=== PATIENT | male | born 1985 | race Caucasian/White ===

== ENCOUNTER 2022-07-05 10:43 | Emergency (ER) | payer OTHER, SELFPAY ==
[2022-07-05 11:00] VITALS: BP 132/91; PULSE 88; RESP 16; TEMP 37.1; O2SAT 98
--- NOTE | 2022-07-05 11:17 | CRLHL7_ITS ---
For Patients: As a result of the Cures Act, medical imaging exams and procedure reports are released immediately into your electronic medical record. You may view this report before your referring provider. If you have questions, please contact your health care provider. Indication: Injury Technique: A total of three views of the right knee were acquired. Comparison: None Findings: Bones: Alignment is normal. No fractures or bone lesions. Joint spaces: Unremarkable. Soft tissues: Large joint effusion. Impression: No directly visible acute fracture, dislocation or destructive process. Large joint effusion which can indicate internal derangement or radiographic occult fracture. Dictated by Manoj Stanley MD @ 07/05/2022 12:03:51 PM (Electronically Signed)
--- NOTE | 2022-07-05 12:10 | ED_ITS ---
HPI - Extremity Problem General Date Seen: 07/05/22 Chief complaint: Lower Extremity Swelling Stated complaint: Fell, injured R knee Time Seen by Provider: 07/05/22 11:16 Source: patient and family Mode of arrival: ambulatory Limitations: no limitations History of Present Illness HPI Narrative: Patient is a 28-year-old gentleman who was up this morning, went outside and slipped on the ice, injuring his right knee, since then he has had trouble bearing weight on his knee, and is noted to be slightly swollen. He has no previous history of knee injuries. Denies any numbness tingling weak and no other associated injury associated with this, he did come to the emergency room for further assessment with his . He did take ibuprofen at approximately 5:30 a.m. this morning. Does not know if this did anything, health is otherwise good, which from [employer]. Related Data Home Medications Medication Instructions Recorded Confirmed No Known Home Medications 07/05/22 07/05/22 Allergies Allergy/AdvReac Type Severity Reaction Status Date / Time No Known Drug Allergies Allergy Verified 07/05/22 11:02 Review of Systems Status of ROS: Reports: 10 or more systems reviewed and unremarkable except as noted in History and below PFSH PFSH Social History Smoking Status: Never smoker Do you use any of these nicotine containing products: None How often do you have a drink containing alcohol: 2-3 times a week How many standard drinks containing alcohol do you have on a typical day: 3 or 4 How often do you have six or more drinks on one occasion: Never AUDIT-C Alcohol total score: 4 Non-prescribed substance use: denies use Exam Narrative: Exam Narrative: On examination well muscled very nice gentleman seen in room 1. His right knee has extension to approximately 5? in flexion to approximately 80?. There is some mild effusion noted his right knee, PCL, MCL and LCL seem intact, his ACL seems lax, on his right knee. Popliteal area is normal, is popliteal pulse and DP and posterior tibial are normal, Gabriela's test does not elicit any significant pain. On ultrasound there is some mild fluid in his right knee, but not a huge amount. X-ray is done which shows no fracture I can see, mild effusion noted. 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 I recommend follow-up with orthopedics next week and we did endeavor to make an appointment there. Vital Signs Vital signs: Initial Vital Signs Temperature 98.7 F 07/05/22 11:00 Temperature Source Temporal Artery Scan 07/05/22 11:00 Pulse Rate 88 07/05/22 11:00 Pulse Rhythm 07/05/22 11:00 Respiratory Rate 16 07/05/22 11:00 Blood Pressure 132/91 H 07/05/22 11:00 Blood Pressure Mean 104 07/05/22 11:00 Blood Pressure Position Sitting 07/05/22 11:00 Pulse Oximetry 98 07/05/22 11:00 Oxygen Delivery Method 07/05/22 11:00 Vital Signs Temperature 98.7 F 07/05/22 11:00 Pulse Rate 88 07/05/22 11:00 Respiratory Rate 16 07/05/22 11:00 Blood Pressure 132/91 H 07/05/22 11:00 Pulse Oximetry 98 07/05/22 11:00 Oxygen Delivery Method 07/05/22 11:00 Temperature 98.7 F 07/05/22 11:00 Pulse Rate 88 07/05/22 11:00 Respiratory Rate 16 07/05/22 11:00 Blood Pressure 132/91 H 07/05/22 11:00 Pulse Oximetry 98 07/05/22 11:00 Oxygen Delivery Method 07/05/22 11:00 MDM - Extremity (Nontraumatic) MDM Narrative Medical decision making narrative: During this evaluation I considered multiple diagnosis including ligamentous rupture, meniscal tear, dislocation of the knee or kneecap, fracture, sprain, or other issues. Discharge Plan Discharge Clinical Impression: Acute knee pain Patient Disposition: Home w/ Parent or Adult Condition: Stable Instructions: Crutch Instructions (ED), Knee Pain (ED) Additional Instructions: Home rest if your unable to bear weight then I think crutches are in order along with a knee immobilizer, let us have the nurse assess that pre discharge. Otherwise you can bear weight as tolerated on your right knee, follow-up with orthopedics next week, your appointment will be made, ibuprofen 800 mg 3 times a day, Prescriptions: No Action No Known Home Medications Follow Up/Referrals: Kodak Javed MD [Staff Physician] - Mary Gamboa PA-C [Primary Care Provider] - Ricardo Rene MD [Staff Physician] - Stand Alone Forms: [facility] Info Instructions
== END 2022-07-05 12:10 | disposition home or self-care (01) ==
PROVIDERS: Emergency Provider Family Medicine; PCP Physician Assistant Medical
DX: M25.561 Pain in right knee (principal); W01.0XXA Fall on same level from slipping, tripping and stumbling without subsequent striking against object, initial encounter
CPT/HCPCS: 73562; 99283

== ENCOUNTER 2022-07-17 08:56 | Outpatient (CLI) | payer OTHER, SELFPAY ==
--- NOTE | 2022-07-17 09:15 | MR_ITS ---
[address] [address] Phone:?[phone] Fax:?[phone] Referring Physician Information: Debra Michaels [facility] [id number] Phone:?[phone] Fax:?[phone] Patient:Luca Dunaway D.O.B:?1985 Sex:?Male Phone:?[phone] [facility] MRN:?[id number] Exam Date:?07/17/2022 ? EXAM: MRI of the RIGHT KNEE, without contrast CLINICAL HISTORY: Right knee injury. Suspect internal derangement. COMPARISONS: MRI 12/02/2012. TECHNICAL: MR sequences of the right knee: sagittals: PD, PDFS coronals: PD, STIR axials: PD, T2 FS CONTRAST: None SEDATION: None FINDINGS: Bones: There is mildly impacted fracture/bone marrow contusion of the peripheral portion of the lateral femoral condyle best seen on axial series 4 images 17 through 20. There is small bone marrow contusion of the medial aspect of the patella best seen on axial series 4 image 19. Patellofemoral joint: Cartilage: Intact. Retinacula: The medial and lateral retinacula are intact. Fat pads: The infrapatellar, quadriceps, and prefemoral fat pads are unremarkable. The Insall Salvati index index measures 0.90. The lateral trochlear inclination angle measures 20 degrees. The tibial tubercle to trochlear groove distance 0.9 cm. Knee joint: Effusion: Large right knee joint effusion. Popliteal cyst: None. Intra-articular bodies: Intra-articular bodies anterior to the anterior horn of the lateral meniscus measuring 3 x 9 x 7 mm in aggregate best seen on sagittal series 6 image 10 and coronal series 8 image 14. Posteromedial corner: The semimembranosus and pes anserine tendons are intact. Medial compartment: Medial meniscus: Intact. Cartilage: 1.0 cm in AP dimension by 0.5 cm in transverse dimension area of full-thickness chondromalacia over the mid weightbearing portion of the medial femoral condyle with slight subjacent subchondral cystic change best seen on coronal series 8 image 20 and sagittal series 5 image 22. Lateral compartment: Lateral meniscus: Intact. Cartilage: 1.5 cm in AP dimension by 0.5 cm in transverse dimension area of full-thickness chondral loss over the anterior nonweightbearing portion of the lateral femoral condyle best seen on sagittal series 6 image 11 and coronal series 8 image 13. Ligaments: Anterior cruciate ligament: Intact. Posterior cruciate ligament: Attenuation and irregularity of the posterior cruciate ligament are findings consistent with sequelae of chronic tear injury. Medial collateral ligament: Intact. Posterior oblique ligament: Intact. Fibular collateral ligament: Intact. Posterolateral corner: The distal biceps femoris tendon, iliotibial band, popliteus tendon, popliteus muscle, popliteofibular ligament, and arcuate ligament are intact. Extensor mechanism: Patellar tendon: Intact. Quadriceps tendon: Intact. IMPRESSION: 1. Sequelae of transient lateral patellar dislocation injury include mildly impacted fracture/bone marrow contusion of the peripheral portion of the lateral femoral condyle and small bone marrow contusion of the medial aspect of the patella. 2. 1.5 x 0.5 cm area of full-thickness chondral loss over the anterior nonweightbearing portion of the lateral femoral condyle. 3. 1.0 x 0.5 cm area of full-thickness chondromalacia over the mid weightbearing portion of the medial femoral condyle with slight subjacent subchondral cystic change. 4. Intra-articular bodies anterior to the anterior horn of the lateral meniscus measure 3 x 9 x 7 mm in aggregate. 5. Attenuation and irregularity of the posterior cruciate ligament are findings consistent with sequelae of chronic complete tear, which was seen on previous MRI 12/02/2012. 6. Large right knee joint effusion. 7. No retinacular injury or meniscal tear of the right knee. The Insall Salvati index, lateral trochlear inclination angle, and tibial tubercle to trochlear groove distance measurements are within normal limits. RCB Electronically signed on 07/17/2022 11:41:00 AM by Rafael Champion M.D.
== END 2022-07-17 08:57 | disposition home or self-care (01) ==
PROVIDERS: PCP Physician Assistant Medical; Visit Provider Physician Assistant Surgical
DX: M25.561 Pain in right knee (principal); M23.91 Unspecified internal derangement of right knee; S83.014A Lateral dislocation of right patella, initial encounter; M94.261 Chondromalacia, right knee; M25.461 Effusion, right knee
CPT/HCPCS: 73721

== ENCOUNTER 2022-09-05 06:14 | Day surgery (SDC) | payer OTHER, SELFPAY ==
[2022-09-05] VITALS (13 sets, daily range): BP systolic 106–134; BP diastolic 75–95; PULSE 59–92; RESP 16; TEMP 36.1–36.6; O2SAT 90–96; BMI 30.3
[2022-09-05] MEDS: SODIUM CHLORIDE 0.9 % (FLUSH) 10 ML SYRINGE IVF (06:45)
[2022-09-05] MEDS: LACTATED RINGERS 1000 ML 1,000 ML 100 ML IV (06:45)
--- NOTE | 2022-09-05 06:48 | SUR.PREOP ---
HOME COVID TEST NEGATIVE.
[2022-09-05] MEDS: CEFAZOLIN 2 GM in 0.9 % SODIUM CHLORIDE Mini-bag 100 ML IVPB (07:45)
[2022-09-05] MEDS: ROPIVACAINE 0.5% 30 ML 150 MG INJECTION (08:04)
--- NOTE | 2022-09-05 08:26 | W.ANESCHARGE ---
Anesthesia Charges Start Date/Time Anesthesia Start Date: 09/05/22 Anesthesia Start Time: 07:38 Stop Date/Time Anesthesia Stop Date: 09/05/22 Anesthesia Stop Time: 08:25
--- NOTE | 2022-09-05 08:31 | W.ANESCHARGE ---
Anesthesia Charges Start Date/Time Anesthesia Start Date: 09/05/22 Anesthesia Start Time: 07:38 Stop Date/Time Anesthesia Stop Date: 09/05/22 Anesthesia Stop Time: 08:25
--- NOTE | 2022-09-05 09:33 | P.ORPRC_ITS ---
Procedure Note Date of procedure: 09/05/22 Procedure: PREOPERATIVE DIAGNOSIS: 1. Right knee loose body POSTOPERATIVE DIAGNOSIS: 1. Right knee loose body 2. 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 Right knee arthroscopic loose body removal 2. Right knee arthroscopic chondroplasty medial femoral condyle (anteriorly) SURGEON: Kodak Javed M.D. ACCOUNTING MACHINE OPERATOR: Rubin Bruce PA-C. Of note, an assistant professor of drama was critical for this case to aid in patient positioning, knee manipulation, instrument exchange, and closure. ANESTHESIA: Spinal EBL: 2ml TOURNIQUET: 20 minutes at 300 torr COMPLICATIONS: None evident INDICATIONS: The patient is a pleasant 37-year-old male who has experienced right knee pain. History is notable for a chronic PCL tear. However, more recent injury prompted further investigation with exam and MRI which were cons istent with a loose body. Additionally, attempted nonoperative management has been tried, and failed. Thus, surgery was recommended. FINDINGS: Thin, 9 mm in length chondral loose body resting in the anterolateral compartment of the knee. This was removed with the torpedo shaver. Beyond that, grade 3 chondromalacia with loose chondral flaps seen in the anterior portion of the medial femoral condyle. The patella showed grade 2-3 chondromalacia median ridge. Medial compartment showed intact medial meniscus and grade 2-3 chondromalacia weight-bearing portion medial femoral condyle broadly. Lateral compartment showed intact lateral meniscus and intact articular cartilage. We tracked the articular cartilage up along the distal and anterior portion of the femur and did not appreciate any other full-thickness chondral defects. ACL was intact robust. PCL was deficient in absent. DESCRIPTION OF PROCEDURE: After a thorough discussion of risks, benefits, and alternatives, the patient was brought to the operating room and placed upon the operating table. Induction of anesthesia was undertaken as previously noted. 2g iv Ancef was administered within 1 hr of incision preoperatively. Appropriate time-out was performed identifying proper patient, site, and procedure. The right lower extremity was prepped and draped in the appropriate sterile fashion using ChloraPrep. The limb was exsanguinated and tourniquet inflated. Anterolateral and anteromedial portals were established with an 11 blade, and a diagnostic arthroscopy was performed. This identified the findings as noted above. Following the diagnostic arthroscopy, a loose body removal was performed with the torpedo shaver. This was also utilized for the chondroplasty on the anterior portion medial femoral condyle of the loose chondral flaps. At this stage, the shaver was reinserted into the suprapatellar pouch and all remaining meniscal debris was evacuated. Instruments were removed, excess fluid was drained, and closure performed with 4-0 Monocryl with Steri-Strips. Dressings were applied, the tourniquet deflated, and the patient was awoken from anesthesia and transferred to the PACU in stable condition. PLAN: 1. Weightbear as tolerated operative extremity. Crutch / walker ambulation assistance PRN. 2. Ice, acetominophen and/or ibuprofen, and Percocet for pain as needed. 3. Knee range of motion and quad sets/straight leg raise regularly 4. Follow up with PA visit in 1-2 weeks for a wound check and possibly to initiate physical therapy.
--- NOTE | 2022-09-05 10:00 | SUR.PHASEII ---
Pt tolerated water. Patient did have one episode of emesis. Pt was offered, but did not care for medicine after episode. Cold washcloth, Queasy patch applied. After monitoring, pt verbalized readiness to be discharged. Pt verbalized understanding of discharge education.
== END 2022-09-05 10:01 | disposition home or self-care (01) ==
PROVIDERS: PCP Physician Assistant Medical; Visit Provider Orthopaedic Surgery Sports Medicine
PROC: (CPT 29870; principal; 2022-09-05 07:30)
DX: M23.41 Loose body in knee, right knee (principal); M94.261 Chondromalacia, right knee
CPT/HCPCS: 29877; 01400; J0690; J1100; J2250; J2405; J2704; J2795; J3010; J7120